=== PATIENT | female | born 1950 | race Caucasian/White ===

== ENCOUNTER → 2023-05-01 13:08 | Outpatient (BNVA) | payer MEDICARE, OTHER, SELFPAY | PROVIDERS: Visit Provider Podiatrist Foot & Ankle Surgery | DX: I73.9 Peripheral vascular disease, unspecified (principal); L60.0 Ingrowing nail; L60.3 Nail dystrophy | CPT/HCPCS: 11720; 99203 ==

== ENCOUNTER 2023-05-04 12:24 | Outpatient (CLI) | payer MEDICARE, OTHER, SELFPAY ==
--- NOTE | 2023-05-04 12:30 | USCV_ITS ---
Deepti Tiwari Age: 72 Gender: F : 1950 Exam Date: 05/04/2023 13:27 Ordering Phys: Faustino Nieto DPM Technologist: Candida Sheehan Insole Lip Turner Exam Location: [facility] [place] Indication: LEG PAIN AND WEAKNESS RIGHT LEFT Brachial 133.00 mmHg Brachial 127.00 mmHg Pressure (mmHg) Waveform Pressure (mmHg) Waveform 151.00 Above Knee 157.00 128.00 Below Knee 151.00 129.00 MANAGER DISTRIBUTION 128.00 132.00 DPA 117.00 0.99 Ankle/Brachial Index 0.96 110.00 Pre-Exercise Toe Pressure 112.00 Pre-Exercise Toe/Brachial Index 0.84 0.83 FINDINGS Resting ARABELLA of 0.9 on the right side and 0.96 on the left. Resting TBI was 0.83 on the right and 0.84 on the left. The PVR waveforms are uninterpretable due to baseline artifact CONCLUSIONS Normal resting ABIs and TBIs bilaterally No significant arterial obstruction, based on the above findings. Dr Varun Mendoza MD [facility] (Electronically Signed) Final Date: 07 May 2023 16:51 S
== END 2023-05-04 12:25 | disposition home or self-care (01) ==
LOC: RAD 12:25
PROVIDERS: PCP Family Medicine; Visit Provider Podiatrist Foot & Ankle Surgery
DX: I73.9 Peripheral vascular disease, unspecified (principal); R53.1 Weakness
CPT/HCPCS: 93923

== ENCOUNTER → 2023-06-11 13:02 | Outpatient (BNVA) | payer MEDICARE, OTHER, SELFPAY | PROVIDERS: PCP Family Medicine; Referring Provider Family Medicine; Visit Provider Specialist | DX: M24.342 Pathological dislocation of left hand, not elsewhere classified | CPT/HCPCS: 73130; 99204 ==

== ENCOUNTER 2023-06-13 12:38 | Outpatient (RCR) | payer MEDICARE, OTHER, SELFPAY | END 2023-06-14 23:59 | disposition home or self-care (01) | LOC: SPT 12:38 | PROVIDERS: PCP Family Medicine; Visit Provider Family Medicine | DX: R42 Dizziness and giddiness (principal); G70.80 Lambert-Eaton syndrome, unspecified | CPT/HCPCS: 95992; 97162 ==

== ENCOUNTER 2023-06-20 12:38 | Outpatient (RCR) | payer MEDICARE, OTHER, SELFPAY | END 2023-07-15 23:59 | disposition home or self-care (01) | LOC: SPT 12:38 | PROVIDERS: PCP Family Medicine; Visit Provider Family Medicine | DX: R42 Dizziness and giddiness (principal); G70.80 Lambert-Eaton syndrome, unspecified | CPT/HCPCS: 95992 ==

== ENCOUNTER → 2023-07-09 11:22 | Outpatient (BNVA) | payer MEDICARE, OTHER, SELFPAY | PROVIDERS: PCP Family Medicine; Visit Provider Podiatrist Foot & Ankle Surgery | DX: L60.3 Nail dystrophy (principal); I73.9 Peripheral vascular disease, unspecified | CPT/HCPCS: 99213 ==

== ENCOUNTER → 2023-12-18 10:04 | Outpatient (BNVA) | payer MEDICARE, OTHER, SELFPAY | PROVIDERS: PCP Family Medicine; Visit Provider Podiatrist Foot & Ankle Surgery | DX: L60.0 Ingrowing nail (principal); L60.3 Nail dystrophy; I73.9 Peripheral vascular disease, unspecified | CPT/HCPCS: 11721; 99213 ==

== ENCOUNTER → 2024-08-13 10:35 | Outpatient (BNVA) | payer MEDICARE, OTHER, SELFPAY | PROVIDERS: Visit Provider Dermatology | DX: L82.1 Other seborrheic keratosis (principal); D22.39 Melanocytic nevi of other parts of face; L57.8 Other skin changes due to chronic exposure to nonionizing radiation; L57.0 Actinic keratosis | CPT/HCPCS: 17000; 99203 ==

== ENCOUNTER 2024-08-20 10:37 | Outpatient (RCR) | payer MEDICARE, OTHER, SELFPAY | END 2024-09-13 23:59 | disposition home or self-care (01) | LOC: SPO 10:37 | PROVIDERS: Visit Provider Nurse Practitioner Family | DX: G31.89 Other specified degenerative diseases of nervous system (principal) | CPT/HCPCS: 97110; 97112; 97162; 97167 ==

== ENCOUNTER 2024-08-28 11:44 | Outpatient (RCR) | payer MEDICARE, OTHER, SELFPAY | END 2024-09-13 23:55 | disposition home or self-care (01) | LOC: SST 11:44 | PROVIDERS: Visit Provider Nurse Practitioner Family | DX: G93.40 Encephalopathy, unspecified (principal) | CPT/HCPCS: 92507; 92523; 92610 ==

== ENCOUNTER 2024-09-14 05:00 | Outpatient (RCR) | payer MEDICARE, OTHER, SELFPAY | END 2024-10-13 23:59 | disposition home or self-care (01) | LOC: SPO 05:00 | PROVIDERS: Visit Provider Nurse Practitioner Family | DX: G31.89 Other specified degenerative diseases of nervous system (principal); G93.89 Other specified disorders of brain | CPT/HCPCS: 97110; 97112; 97530 ==

== ENCOUNTER 2024-09-14 06:30 | Outpatient (RCR) | payer MEDICARE, OTHER, SELFPAY | END 2024-10-13 23:59 | disposition home or self-care (01) | LOC: SST 06:30 | PROVIDERS: Visit Provider Nurse Practitioner Family | DX: G93.40 Encephalopathy, unspecified (principal) | CPT/HCPCS: 92507 ==

== ENCOUNTER 2024-10-14 05:00 | Outpatient (RCR) | payer MEDICARE, OTHER, SELFPAY | END 2024-11-13 23:59 | disposition home or self-care (01) | LOC: SPO 05:00 | PROVIDERS: Visit Provider Nurse Practitioner Family | DX: G31.89 Other specified degenerative diseases of nervous system (principal) | CPT/HCPCS: 97112; 97530 ==